=== PATIENT | female | born 1965 | race Caucasian/White ===

== ENCOUNTER 2022-12-03 07:32 | Emergency (ER) | payer OTHER, SELFPAY ==
[2022-12-03 07:36] VITALS: BP 158/96; PULSE 82; RESP 20; TEMP 36.8; O2SAT 99; BMI 27.4
--- NOTE | 2022-12-03 08:03 | ED_ITS ---
HPI - General Adult General Chief complaint: Eye Problems Stated complaint: RT eye swollen T-7 Time Seen by Provider: 12/03/22 07:45 Source: patient and family Mode of arrival: Family Vehicle History of Present Illness HPI narrative: 57-year-old female. No prior history of PE or case/Lasix/glaucoma/cataracts. Was seen in the walk-in clinic yesterday for redness around her right eye. Was diagnosed with cellulitis. Because of her allergies she was given a prescription for Bactrim eyedrops and also doxycycline. She comes in the emergency department today stating that she feels like her symptoms have worsened overnight. She has taken 1 dose of doxycycline yesterday and then 1 dose this morning. Related Data Home Medications Medication Instructions Recorded Confirmed levothyroxine 175 mcg tablet mcg PO 12/02/22 12/02/22 (Synthroid) oxycodone-acetaminophen 5 mg-325 1 tab PO Q6H PRN pain 12/02/22 12/02/22 mg tablet rosuvastatin 20 mg tablet 20 mg PO ONCE PM 12/02/22 12/02/22 sertraline 100 mg tablet 100 mg PO DAILY 12/02/22 12/02/22 Previous Rx's Medication Instructions Recorded doxycycline hyclate 100 mg capsule 100 mg PO BID 7 days #14 caps 12/02/22 polymyxin B sulfate 10,000 2 drp ophthalmic (eye) QID 12/02/22 unit-trimethoprim 1 mg/mL eye drops chalazion 10 days #10 mL Allergies Allergy/AdvReac Type Severity Reaction Status Date / Time levofloxacin Allergy Mild SOB Verified 12/03/22 07:47 cefuroxime Allergy Wheezing Verified 12/03/22 07:47 Review of Systems Eyes Eyes: Reports system reviewed and no additional complaints, except as documented Integumentary/Breasts Skin/Breast: Reports system reviewed and no additional complaints, except as documented Neurologic Neurologic: Reports system reviewed and no additional complaints, except as documented Patient History Social History Smoking Status: Former smoker Smoking Status: Former smoker tobacco type: cigarettes alcohol intake frequency: 0-2 drinks per day Substance Use Type: marijuana Exam Initial Vital Signs Initial Vital Signs: Vital Signs Temperature 98.3 F 12/03/22 07:36 Pulse Rate 82 12/03/22 07:36 Respiratory Rate 20 12/03/22 07:36 Blood Pressure 158/96 H 12/03/22 07:36 Pulse Oximetry 99 12/03/22 07:36 Oxygen Delivery Method Room Air 12/03/22 07:36 [facility] [place] Head: normal to inspection and normocephalic Ears: hearing grossly normal bilaterally, TM's normal bilaterally and EAC's normal Nose: external nose normal, No epistaxis and No nasal discharge Mouth: oral mucosae normal Eyes Other: Left eye is unremarkable. Right eye has redness surrounding the right eye and significant amount of swelling of the upper eyelid. Pupils are equal round reactive. No pain with extraocular movements. Neck Other: Right-sided anterior cervical lymphadenopathy Skin Other: Redness and swelling around the right upper eyelid Neuro General: patient alert, patient awake, patient oriented x3 and moves all extremities Extrem General: normal to inspection Course Vital Signs Vital signs: Vital Signs - 8 hr 12/03/22 07:36 Temperature 98.3 F Pulse Rate 82 Respiratory Rate 20 Blood Pressure 158/96 H Pulse Oximetry 99 Oxygen Delivery Method Room Air Medical Decision Making [facility] Narrative Medical decision making narrative: Patient has history and physical exam that is consistent with preseptal cellulitis. I have low suspicion for orbital cellulitis. Her extraocular muscles are intact. Her sclera an eye itself appear well. There was no drainage. I advised that she can stop the Bactrim drops is this is most likely not helping anything. She is on doxycycline which would be appropriate given her allergies. Had a discussion with her and her . She is really only had 1 dose of the antibiotics as the dose from this morning most likely has not had any effect. Rather than switching her to a new antibiotic I recommended that we continue on the current course of treatment for the next 24-48 hours. They were advised that if her symptoms worsen that she is going to need to return to the emergency department. I feel that we can hold on any radiologic studies for now as I feel that orbital cellulitis is very unlikely. They expressed understanding and agreement. Discharge Plan Departure Patient Disposition: Home Clinical Impression: Periorbital cellulitis Instructions: DI for Cellulitis -- Adult Activity Restrictions/Additional Instructions: I think that you can stop taking the eye drops as the infection that you have today is in the skin around the eye not in the eye itself. I recommend that you continue with the doxycycline and taking it as directed. You should see some improvement within the next 24-48 hours. If your symptoms are worsening please return to the emergency department for further evaluation. Prescriptions: No Action sertraline 100 mg tablet 100 mg PO DAILY oxycodone-acetaminophen 5-325 mg tablet 1 tab PO Q6H PRN (Reason: pain) rosuvastatin 20 mg tablet 20 mg PO ONCE PM levothyroxine [Synthroid] 175 mcg tablet PO polymyxin B sulf-trimethoprim 10,000 unit- 1 mg/mL drops 2 drp ophthalmic (eye) QID 10 Days Qty: 10 0RF doxycycline hyclate 100 mg capsule 100 mg PO BID 7 Days Qty: 14 0RF Referrals: Miscellaneous,Doctor, MD [Primary Care Provider] - Stand Alone Forms: Patient Portal/API
== END 2022-12-03 08:06 | disposition home or self-care (01) ==
PROVIDERS: Emergency Provider Emergency Medicine; PCP Family Medicine
DX: L03.213 Periorbital cellulitis (principal)
CPT/HCPCS: 99281

== ENCOUNTER 2022-12-03 19:07 | Emergency (ER) | payer OTHER, SELFPAY ==
[2022-12-03 19:22] VITALS: BP 173/100; PULSE 78; RESP 18; TEMP 37.1; O2SAT 99; BMI 27.4
--- NOTE | 2022-12-03 19:22 | ED_ITS ---
HPI - General Adult General Chief complaint: Skin/Abscess/Foreign Body Stated complaint: rt eye cellulitis getting worse Time Seen by Provider: 12/03/22 19:21 History of Present Illness HPI narrative: 57-year-old female former smoker with history of hypothyroid returns for the 2nd time today for evaluation of worsening pain, swelling and redness around her right eye. She was initially seen yesterday at the walk-in clinic and diagnosed with preseptal cellulitis versus blepharitis and started on antibacterial drops as well as oral doxycycline. She had some worsening of symptoms such as increased swelling and came to see us in the emergency department this morning. Her evaluation was reassuring and she was discharged with encouragement to return if her symptoms worsen. She is now had 3 doses of her doxycycline and has increasing swelling of her upper lid and adjacent to her right eye. She has no eye pain itself, denies any pain with extraocular motion, denies any eye drai nage or redness. She denies any vision change. She has no confusion or altered mental status, no difficulty swallowing. She denies chest pain, shortness of breath or cough Related Data Home Medications Medication Instructions Recorded Confirmed levothyroxine 175 mcg tablet mcg PO 12/02/22 12/02/22 (Synthroid) oxycodone-acetaminophen 5 mg-325 1 tab PO Q6H PRN pain 12/02/22 12/02/22 mg tablet rosuvastatin 20 mg tablet 20 mg PO ONCE PM 12/02/22 12/02/22 sertraline 100 mg tablet 100 mg PO DAILY 12/02/22 12/02/22 Previous Rx's Medication Instructions Recorded doxycycline hyclate 100 mg capsule 100 mg PO BID 7 days #14 caps 12/02/22 polymyxin B sulfate 10,000 2 drp ophthalmic (eye) QID 12/02/22 unit-trimethoprim 1 mg/mL eye drops chalazion 10 days #10 mL Allergies Allergy/AdvReac Type Severity Reaction Status Date / Time levofloxacin Allergy Mild SOB Verified 12/03/22 07:47 cefuroxime Allergy Wheezing Verified 12/03/22 07:47 Review of Systems Review of Systems Narrative: GENERAL: Denies chills, fatigue, malaise, fever, sweats. HEENT: See HPI RESPIRATORY: Denies dyspnea, cough, wheezing, hemoptysis, sputum. CARDIOVASCULAR: Denies chest pain, palpitations, orthopnea, edema, GASTROINTESTINAL: Denies nausea, vomiting, abdominal pain, diarrhea, constipation, melena. : Denies dysuria, frequency, incontinence, hematuria, urinary retention. MUSCULOSKELETAL: denies weakness, joint pain, or bony pain SKIN: See HPI NEUROLOGIC: Denies weakness, headache, numbness, change in speech, confusion, seizures, incoordination. PSYCHIATRIC: No concerning psychosocial issues. 12 point review of systems is negative except for those stated above Patient History Social History Smoking Status: Former smoker Smoking Status: Former smoker tobacco type: cigarettes alcohol intake frequency: 0-2 drinks per day Substance Use Type: marijuana Exam Narrative Exam Narrative: GENERAL: [57] year old patient appears stated age. Well-developed patient, in moderate distress, tearful, obviously uncomfortable HEAD: Atraumatic. Normocephalic. EYES: Right upper lid with moderate erythema and swelling, no fluctuance or drainage, this erythema and tenderness extends to the lateral aspect of her eye and overlying her zygoma. Pupils equal round and reactive. Extraocular motions intact. No scleral icterus. No injection or drainage. ENT: Nose without bleeding, purulent drainage. Throat without erythema, tonsillar hypertrophy or exudate. Airway patent. NECK: Trachea midline. Non tender CARDIOVASCULAR: Regular rate and rhythm without murmurs, gallops, or rubs. RESPIRATORY: Clear to auscultation. Breath sounds equal bilaterally. No wheezes, rales, or rhonchi. GASTROINTESTINAL: Abdomen soft, non-tender, nondistended. EXTREMITIES: No edema or joint tenderness. BACK: Nontender without deformity or crepitance. No flank tenderness. NEURO: AOx3. SKIN: No rash or erythema of visible areas Initial Vital Signs Initial Vital Signs: Vital Signs Temperature 98.7 F 12/03/22 19:22 Pulse Rate 78 12/03/22 19:22 Respiratory Rate 18 12/03/22 19:22 Blood Pressure 173/100 H 12/03/22 19:22 Pulse Oximetry 99 12/03/22 19:22 Oxygen Delivery Method Room Air 12/03/22 19:22 Course Orders Ordered: ED Orders 12/03/22 22:50 CT orbit BI w con Stat 12/03/22 23:05 Complete Blood Count AUTO DIFF Stat Comprehensive Metabolic Panel Stat Lactate (Lactic Acid) Stat 12/03/22 23:25 Blood Culture Stat Discontinued Medications Hydromorphone HCl (Hydromorphone 0.5 Mg Inj) 0.5 mg IV NOW ONE Stop: 12/04/22 00:23 Last Admin: 12/04/22 00:35 Dose: 0.5 mg Documented By: ERICA Sodium Chloride (Normal Saline 0.9%) 1,000 mls @ 1,000 mls/hr IV BOLUS ONE Stop: 12/03/22 23:49 Last Infusion: 12/04/22 00:11 Dose: 0 mls/hr Documented By: Admin: 12/03/22 23:24 Dose: 1,000 mls/hr Documented By: ERICA Ketorolac Tromethamine (Ketorolac 30 Mg/Ml Vial) 15 mg IV NOW ONE Stop: 12/03/22 22:51 Last Admin: 12/03/22 23:24 Dose: 15 mg Documented By: ERICA Vital Signs Vital signs: Vital Signs - 8 hr 12/03/22 21:57 12/03/22 21:57 12/03/22 22:00 Temperature Pulse Rate 73 Blood Pressure 144/92 H 138/87 Pulse Oximetry 96 Oxygen Delivery Method Room Air 12/03/22 22:00 12/03/22 22:30 12/03/22 22:30 Temperature Pulse Rate 74 71 Blood Pressure 137/83 Pulse Oximetry 97 96 Oxygen Delivery Method Room Air Room Air 12/03/22 23:00 12/03/22 23:30 12/04/22 00:00 Temperature Pulse Rate 71 70 69 Blood Pressure Pulse Oximetry 97 97 98 Oxygen Delivery Method Room Air Room Air 12/04/22 00:15 12/04/22 00:15 12/04/22 00:15 Temperature 97.6 F Pulse Rate 69 Blood Pressure 142/86 H Pulse Oximetry 98 Oxygen Delivery Method Room Air 12/04/22 00:30 12/04/22 00:30 12/04/22 01:00 Temperature Pulse Rate 64 Blood Pressure 136/80 140/89 Pulse Oximetry 97 Oxygen Delivery Method Room Air 12/04/22 01:00 Temperature Pulse Rate 66 Blood Pressure Pulse Oximetry 97 Oxygen Delivery Method Medical Decision Making Lab Data 12/03/22 23:05 12/03/22 23:05 Labs: Lab Results 12/03/22 12/03/22 12/03/22 Range/Units 23:05 23:05 23:05 WBC 6.0 (4.5-11.0) X10^3/uL RBC 4.03 (4.0-5.2) X10^6/uL Hgb 12.8 (12.0-16.0) g/dL Hct 36.9 (36-46) % MCV 91.6 (80-100) fL MCH 31.7 (26-34) PG MCHC 34.7 (30-36) % RDW 13.1 (11.6-14.8) % Plt Count 122 L (150-400) X10^3/uL Neut % (Auto) 66.2 (50-75) % Lymph % (Auto) 21.6 L (25-40) % Garvin % (Auto) 7.1 (3-14) % Eos % (Auto) 3.8 (2-4) % Baso % (Auto) 1.3 (0-2) % Neut # (Auto) 4000 (9896-3195) /uL Lymph # (Auto) 1300 (7864-6844) /uL Garvin # (Auto) 400 (0-900) /uL Eos # (Auto) 200 (0-450) /uL Baso # (Auto) 100 (0-100) /uL Sodium 136 L (137-145) mmol/L Potassium 3.7 (3.4-5.1) mmol/L Chloride 104 (98-107) mmol/L Carbon Dioxide 23 (22-32) mmol/L BUN 16 (7-17) mg/dL Creatinine 0.58 (0.52-1.04) mg/dL Estimated GFR > 60 (>60) mL/min BUN/Creatinine Ratio 27.6 H (6-22) Glucose 122 H (70-100) mg/dL Lactate 1.6 (0.7-2.1) mmol/L Calcium 9.2 (8.4-10.2) mg/dL Total Bilirubin 0.6 (0.2-1.3) mg/dL AST 24 (14-36) IU/L ALT 22 (<35) IU/L Alkaline Phosphatase 75 (38-126) U/L Total Protein 7.0 (6.3-8.2) g/dL Albumin 4.1 (3.5-5.0) g/dL Globulin 2.9 (1.7-4.1) g/dL Albumin/Globulin Ratio 1.4 (1.0-2.8) MDM Narrative Medical decision making narrative: CC: 57-year-old female with worsening pain, swelling and redness around her right eye Complicating co-morbidities: Age, former smoker, 3rd visit Data collected from: Patient Medical records reviewed: Prior notes reviewed in our EMR Differential considered, but not limited to: Preseptal cellulitis versus septal cellulitis versus abscess versus other Exam documented above, pertinent findings include: Pain, redness and swelling around right eye and mainly in the upper lid, no fluctuance or induration, no pain with extraocular motion, no drainage, no scleral Lab Test results independently reviewed as above. Pertinent findings: Injection or vision change Independently reviewed EKG as above Imaging studies independently reviewed: CT of the soft tissue of orbit notes cellulitis but no abscess, no retrobulbar infection. Treatments: Fluids, pain control Re-evaluations: Patient feeling much better Discussion: Patient with increasing pain and redness of her right upper lid. She is been seen in diagnosed with cellulitis and has taken 3 doses of doxycycline. Her vision is intact, she is no pain with extraocular motions and is otherwise well. We had a lengthy discussion between myself, patient and about how to proceed. We discussed that after only 3 doses of doxycycline there is not sufficient amount of time to determine that this is an antibiotic failure. We discussed the pros and cons of continuing on doxycycline for a few more days or switching and agreed that we would stick with doxycycline as it is clear that she tolerates it and she likely has not been on it long enough to in change. Imaging is reassuring and there is no abscess or evidence of deep infection. She is given extensive return precautions and questions have been answered to her apparent satisfaction Disposition: see below, along with detailed discharge instructions that have been reviewed with patient as well as indications for ED re-evaluation and additional outpatient follow up Discharge Plan Departure Patient Disposition: Home Clinical Impression: Periorbital cellulitis Instructions: DI for Cellulitis -- Adult Activity Restrictions/Additional Instructions: *You have been diagnosed with [periorbital cellulitis. As we discussed your history and physical exam are reassuring as are labs and the CT scan.] *What to do: *Please continue to take your regular medications as directed. *Please follow up with your primary care provider in 2-3 days, call for an appointment. Let them know you were seen in the Emergency Department and that we ask that you be seen in follow up. We will electronically transmit a record of today's note if your PCP is in our system *If you do not have a primary care provider please contact the [facility] Resource line at [phone]. They will ask some questions about your medical history and help get you set up with a doctor in the community. *Return to Emergency Department if you should have any new, worsening or concerning symptoms, such as [fever greater than 101 F, shaking chills, worsening pain, persistent vomiting or other bothersome symptoms] Prescriptions: No Action sertraline 100 mg tablet 100 mg PO DAILY oxycodone-acetaminophen 5-325 mg tablet 1 tab PO Q6H PRN (Reason: pain) rosuvastatin 20 mg tablet 20 mg PO ONCE PM levothyroxine [Synthroid] 175 mcg tablet PO polymyxin B sulf-trimethoprim 10,000 unit- 1 mg/mL drops 2 drp ophthalmic (eye) QID 10 Days Qty: 10 0RF doxycycline hyclate 100 mg capsule 100 mg PO BID 7 Days Qty: 14 0RF Referrals: Obdulia Diallo MD [Primary Care Provider] - Stand Alone Forms: Patient Portal/API
[2022-12-03 21:57] VITALS: BP 144/92; PULSE 73; O2SAT 96
[2022-12-03 22:00] VITALS: BP 138/87; PULSE 74; O2SAT 97
[2022-12-03 22:30] VITALS: BP 137/83; PULSE 71; O2SAT 96
--- NOTE | 2022-12-03 22:50 | DI.CT.S_ITS ---
PROCEDURE: CT ORBIT BI W CON INDICATIONS: facial pain, swelling, redness, worsening TECHNIQUE: After the administration of intravenous contrast, 2.5 mm axial images acquired through the orbits, with coronal and sagittal reformats. For radiation dose reduction, the following was used: automated exposure control, adjustment of mA and/or kV according to patient size. COMPARISON: None. FINDINGS: Image quality: Excellent. Orbits: There is right periorbital soft tissue swelling and enhancement tracking along the right globe anteriorly. Globes are intact and symmetric in size. The optic nerves are normal in size and enhancement. No retrobulbar masses, fluid collections, or fat stranding. The extra-ocular muscles are normal and symmetrical in appearance. Lacrimal glands are normal. Optic chiasm is normal. Periorbital soft tissues are normal. Intracranial: The pituitary gland is normal, without sellar or suprasellar masses. Visualized cerebral hemispheres, brainstem, and spinal cord appear normal. Bones and sinuses: Visualized calvarium and facial bones appear intact. Visualized sinuses and mastoids are clear. IMPRESSION: 1. Right periorbital soft tissue swelling and enhancement likely represent cellulitis. No definite evidence of retrobulbar extension. Dictated by: Oliver Walton M.D. on 12/04/2022 at 0:57 Approved by: Oliver Walton M.D. on 12/04/2022 at 0:59
[2022-12-03 23:00] VITALS: PULSE 71; O2SAT 97
[2022-12-03 23:16] LABS: Add Manual Diff / Slide Review NO; Basophils Absolute Auto 100 /uL (0-100); Basophils Percent Auto 1.3 % (0-2); Eosinophils Absolute Auto 200 /uL (0-450); Eosinophils Percent Auto 3.8 % (2-4); Hematocrit 36.9 % (36-46); Hemoglobin 12.8 g/dL (12.0-16.0); Lymphocytes Absolute Auto 1300 /uL (1100-4500); Lymphocytes Percent Auto 21.6 % (25-40); Mean Corpuscular HGB Conc 34.7 % (30-36); Mean Corpuscular Hemoglobin 31.7 PG (26-34); Mean Corpuscular Volume 91.6 fL (80-100); Monocytes Absolute Auto 400 /uL (0-900); Monocytes Percent Auto 7.1 % (3-14); Neutrophils Absolute Auto 4000 /uL (1500-7000); Neutrophils Percent Auto 66.2 % (50-75); Platelet Count 122 X10^3/uL (150-400); Red Blood Cell Count 4.03 X10^6/uL (4.0-5.2); Red Cell Distribution Width 13.1 % (11.6-14.8)
[2022-12-03] MEDS: KETOROLAC 30 MG/ML VIAL 15 MG IV (23:24)
[2022-12-03] MEDS: SODIUM CHLORIDE 0.9% 1,000 ML 1000 ML IV (23:24)
[2022-12-03 23:25] LABS: Lactate (Lactic Acid) 1.6 mmol/L (0.7-2.1)
[2022-12-03 23:27] LABS: Alanine Aminotransferase 22 IU/L (<35); Albumin 4.1 g/dL (3.5-5.0); Albumin Globulin Ratio 1.4 (1.0-2.8); Alkaline Phosphatase 75 U/L (38-126); Aspartate Aminotransferase 24 IU/L (14-36); BUN Creatinine Ratio 27.6 (6-22); Bilirubin Total 0.6 mg/dL (0.2-1.3); Blood Urea Nitrogen 16 mg/dL (7-17); Calcium 9.2 mg/dL (8.4-10.2); Carbon Dioxide 23 mmol/L (22-32); Chloride 104 mmol/L (98-107); Estimated Glomerular Filt Rate > 60 mL/min (>60); Globulin 2.9 g/dL (1.7-4.1); Glucose 122 mg/dL (70-100); HEMOLYSIS 26 (0-50); Potassium 3.7 mmol/L (3.4-5.1); Sodium 136 mmol/L (137-145)
[2022-12-03 23:30] VITALS: PULSE 70; O2SAT 97
[2022-12-04] VITALS: PULSE 69; O2SAT 98
[2022-12-04 00:15] VITALS: BP 142/86; PULSE 69; TEMP 36.4; O2SAT 98
[2022-12-04 00:30] VITALS: BP 136/80; PULSE 64; O2SAT 97
[2022-12-04] MEDS: HYDROMORPHONE 0.5 MG INJ IV (00:35)
[2022-12-04 01:00] VITALS: BP 140/89; PULSE 66; O2SAT 97
== END 2022-12-04 01:27 | disposition home or self-care (01) ==
PROVIDERS: Emergency Provider Emergency Medicine; PCP Family Medicine
DX: L03.213 Periorbital cellulitis (principal)
CPT/HCPCS: 36415; 70481; 80053; 83605; 85025; 87040; 96361; 96374; 96375; 99281; 99284; J1170; J1885; Q9967

== ENCOUNTER 2024-06-10 12:55 | Emergency (ER) | payer OTHER, SELFPAY ==
[2024-06-10] VITALS (11 sets, daily range): BP systolic 98–130; BP diastolic 56–70; PULSE 70–90; RESP 16–24; TEMP 36.9; O2SAT 94–100; BMI 29.0
--- NOTE | 2024-06-10 13:19 | EKG_ITS ---
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
[2024-06-10 13:42] LABS: Add Manual Diff / Slide Review NO; Basophils Absolute Auto 100 /uL (0-100); Basophils Percent Auto 1.3 % (0-2); Eosinophils Absolute Auto 300 /uL (0-450); Eosinophils Percent Auto 5.9 % (2-4); Hematocrit 37.1 % (36-46); Hemoglobin 12.9 g/dL (12.0-16.0); Lymphocytes Absolute Auto 1400 /uL (1100-4500); Lymphocytes Percent Auto 27.3 % (25-40); Mean Corpuscular HGB Conc 34.8 % (30-36); Mean Corpuscular Hemoglobin 31.9 PG (26-34); Mean Corpuscular Volume 91.6 fL (80-100); Monocytes Absolute Auto 400 /uL (0-900); Monocytes Percent Auto 7.2 % (3-14); Neutrophils Absolute Auto 3100 /uL (1500-7000); Neutrophils Percent Auto 58.3 % (50-75); Platelet Count 148 X10^3/uL (150-400); Red Blood Cell Count 4.05 X10^6/uL (4.0-5.2); Red Cell Distribution Width 12.8 % (11.6-14.8); White Blood Cell Count 5.3 X10^3/uL (4.5-11.0)
[2024-06-10 13:44] LABS: Alanine Aminotransferase 39 IU/L (<35); Albumin 4.5 g/dL (3.5-5.0); Albumin Globulin Ratio 1.9 (1.0-2.8); Alkaline Phosphatase 77 U/L (38-126); Aspartate Aminotransferase 38 IU/L (14-36); BUN Creatinine Ratio 21.7 (6-22); Bilirubin Total 0.7 mg/dL (0.2-1.3); Blood Urea Nitrogen 15 mg/dL (7-17); Calcium 9.8 mg/dL (8.4-10.2); Carbon Dioxide 24 mmol/L (22-32); Chloride 105 mmol/L (98-107); Creatine Kinase 33 U/L (30-135); Estimated Glomerular Filt Rate > 60 mL/min (>60); Globulin 2.4 g/dL (1.7-4.1); Glucose 111 mg/dL (70-100); HEMOLYSIS < 15 (0-50); Lipase 59 U/L (23-300); Potassium 4.2 mmol/L (3.4-5.1); Sodium 138 mmol/L (137-145); Total Protein 6.9 g/dL (6.3-8.2)
[2024-06-10 13:56] LABS: Troponin I < 0.012 ng/mL (0.01-0.034)
[2024-06-10] MEDS: ONDANSETRON 4 MG/2 ML INJ IV (14:12)
--- NOTE | 2024-06-10 14:17 | PC.NURSE ---
Pt reports that pain is under control. Feeling nauseated, medicated for nausea.
--- NOTE | 2024-06-10 15:12 | ED_ITS ---
HPI - General Adult General Chief complaint: Abdominal Pain Stated complaint: upper abd pain Time Seen by Provider: 06/10/24 13:30 Source: patient Mode of arrival: Ambulatory History of Present Illness HPI narrative: 58-year-old female with history of prior but no other abdominopelvic surgeries, no known gallbladder problems, had epigastric spasm like pain 11:00 p.m. lasting about an hour and a half, seems improved now, some associated belching, with some radiation toward the back. No trauma injury or new activities. No cough or shortness of breath. Some associated nausea without emesis. No diarrhea. No black or red stools. No black or red emesis. No painful urination or frequency of urination. No fevers or chills. She feels improved now. Related Data Home Medications Medication Instructions Recorded Confirmed levothyroxine 175 mcg tablet mcg PO 12/02/22 12/02/22 (Synthroid) oxycodone-acetaminophen 5 mg-325 1 tab PO Q6H PRN pain 12/02/22 12/02/22 mg tablet rosuvastatin 20 mg tablet 20 mg PO ONCE PM 12/02/22 12/02/22 sertraline 100 mg tablet 100 mg PO DAILY 12/02/22 12/02/22 Previous Rx's Medication Instructions Recorded omeprazole 20 mg capsule,delayed 20 mg PO DAILY upper abdominal 06/10/24 release pain 30 days #30 caps Allergies Allergy/AdvReac Type Severity Reaction Status Date / Time levofloxacin Allergy Mild SOB Verified 06/10/24 13:08 cefuroxime Allergy Wheezing Verified 06/10/24 13:08 Patient History Social History Smoking Status: Current every day smoker Smoking Status: Current every day smoker tobacco type: cigarettes alcohol intake frequency: 0-2 drinks per day Exam Narrative Exam Narrative: GENERAL: Well-developed patient, in mild distress. HEAD: Atraumatic. Normocephalic. EYES: Pupils equal round and reactive. Extraocular motions intact. No scleral icterus. No injection or drainage. ENT: Nose without bleeding, purulent drainage. Throat without erythema, tonsillar hypertrophy or exudate. Airway patent. NECK: Trachea midline. Non tender CARDIOVASCULAR: Regular rate and rhythm without murmurs, gallops, or rubs. RESPIRATORY: Clear to auscultation. Breath sounds equal bilaterally. No wheezes, rales, or rhonchi. GASTROINTESTINAL: Abdomen soft, non-tender, nondistended. EXTREMITIES: No edema or joint tenderness. BACK: Nontender without deformity or crepitance. No flank tenderness. NEURO: AOx3. Motor functions grossly nonfocal SKIN: No rash or erythema of visible areas Initial Vital Signs Initial Vital Signs: Vital Signs Temperature 98.4 F 06/10/24 13:08 Pulse Rate 90 06/10/24 13:08 Respiratory Rate 16 06/10/24 13:08 Blood Pressure 112/70 06/10/24 13:08 Pulse Oximetry 100 06/10/24 13:08 Oxygen Delivery Method Room Air 06/10/24 13:08 Course Orders Ordered: Discontinued Medications Aspirin (Aspirin 81 Mg Chew Tab) 324 mg PO NOW ONE Stop: 06/10/24 13:31 Last Admin: 06/10/24 14:29 Dose: Not Given Documented By: Famotidine (Famotidine 20 Mg/2 Ml Vial) 20 mg IV NOW VIMAL Ondansetron HCl (Ondansetron 4 Mg/2 Ml Inj) 4 mg IV NOW PRN PRN Reason: Nausea And Vomiting Last Admin: 06/10/24 14:12 Dose: 4 mg Documented By: Ondansetron HCl (Ondansetron 4 Mg Odt) 4 mg PO NOW PRN PRN Reason: Nausea And Vomiting Vital Signs Vital signs: Vital Signs - 8 hr 06/10/24 13:08 06/10/24 13:29 06/10/24 13:29 Temperature 98.4 F Pulse Rate 90 78 Respiratory Rate 16 16 Blood Pressure 112/70 130/68 Pulse Oximetry 100 97 Oxygen Delivery Method Room Air 06/10/24 13:30 06/10/24 13:30 06/10/24 14:00 Temperature Pulse Rate 75 Respiratory Rate 18 Blood Pressure 118/65 106/56 L Pulse Oximetry 96 Oxygen Delivery Method Room Air 06/10/24 14:00 06/10/24 14:30 06/10/24 14:30 Temperature Pulse Rate 71 72 Respiratory Rate 16 20 Blood Pressure 101/56 L Pulse Oximetry 95 95 Oxygen Delivery Method 06/10/24 15:00 06/10/24 15:00 06/10/24 15:30 Temperature Pulse Rate 72 77 Respiratory Rate 21 19 Blood Pressure 107/62 Pulse Oximetry 96 94 Oxygen Delivery Method Room Air 06/10/24 15:30 06/10/24 16:00 06/10/24 16:00 Temperature Pulse Rate 72 Respiratory Rate 19 Blood Pressure 105/56 L 98/57 L Pulse Oximetry 96 Oxygen Delivery Method 06/10/24 16:30 06/10/24 16:30 06/10/24 17:00 Temperature Pulse Rate 72 72 Respiratory Rate 22 21 Blood Pressure 98/58 L Pulse Oximetry 94 94 Oxygen Delivery Method Room Air 06/10/24 17:00 06/10/24 17:30 06/10/24 17:30 Temperature Pulse Rate 70 Respiratory Rate 24 Blood Pressure 109/56 L 104/57 L Pulse Oximetry 95 Oxygen Delivery Method Medical Decision Making Lab Data Lab results reviewed: Yes I reviewed the patient's lab results. Lab results narrative: White blood cell count 5300, hemoglobin 12.9, platelets 148,000. Glucose 111. BUN 15 with creatinine 0.69. Sodium 139 with potassium 4.2, serum CO2 24, serum chloride 115. Liver functions normal. Lipase normal. Troponin negative. 06/10/24 13:20 06/10/24 13:20 Labs: Lab Results 06/10/24 06/10/24 Range/Units 13:20 16:18 WBC 5.3 (4.5-11.0) X10^3/uL RBC 4.05 (4.0-5.2) X10^6/uL Hgb 12.9 (12.0-16.0) g/dL Hct 37.1 (36-46) % MCV 91.6 (80-100) fL MCH 31.9 (26-34) PG MCHC 34.8 (30-36) % RDW 12.8 (11.6-14.8) % Plt Count 148 L (150-400) X10^3/uL Neut % (Auto) 58.3 (50-75) % Lymph % (Auto) 27.3 (25-40) % Braxton % (Auto) 7.2 (3-14) % Eos % (Auto) 5.9 H (2-4) % Baso % (Auto) 1.3 (0-2) % Neut # (Auto) 3100 (1401-9687) /uL Lymph # (Auto) 1400 (4397-3035) /uL Braxton # (Auto) 400 (0-900) /uL Eos # (Auto) 300 (0-450) /uL Baso # (Auto) 100 (0-100) /uL Sodium 138 (137-145) mmol/L Potassium 4.2 (3.4-5.1) mmol/L Chloride 105 (98-107) mmol/L Carbon Dioxide 24 (22-32) mmol/L BUN 15 (7-17) mg/dL Creatinine 0.69 (0.52-1.04) mg/dL Estimated GFR > 60 (>60) mL/min BUN/Creatinine Ratio 21.7 (6-22) Glucose 111 H (70-100) mg/dL Calcium 9.8 (8.4-10.2) mg/dL Total Bilirubin 0.7 (0.2-1.3) mg/dL AST 38 H (14-36) IU/L ALT 39 H (<35) IU/L Alkaline Phosphatase 77 (38-126) U/L Total Creatine Kinase 33 (30-135) U/L Troponin I < 0.012 < 0.012 (0.01-0.034) ng/mL Total Protein 6.9 (6.3-8.2) g/dL Albumin 4.5 (3.5-5.0) g/dL Globulin 2.4 (1.7-4.1) g/dL Albumin/Globulin Ratio 1.9 (1.0-2.8) Lipase 59 (23-300) U/L Imaging Data CT scan - abdomen/pelvis: Radiologist's Impression: Close Abdomen Ultrasound (Signed) Silviano Nunez - 06/10/24 [place] [id number] Ultrasound Report Signed Patient: Yuly Pandey MR#: [id number] : 1965 Acct:[id number] Age/Sex: 58 / F Date of Service: 06/10/24 Loc: ED Accession Number: [id number] Procedure: US abdomen limited Ordering Provider: Jeremy Hyman MD PROCEDURE: US ABDOMEN LIMITED INDICATIONS: ruq abdominal pain. TECHNIQUE: Real-time scanning was performed of the abdominal and retroperitoneal organs, with image documentation. COMPARISON: None. FINDINGS: Evaluation is limited due to body habitus and insufficient sonographic penetration. Liver: Liver is normal in size and homogeneous in echotexture. The parenchyma is hyperechoic. There is a 2.2 x 1.5 x 2.0 cm area of focal fatty sparing adjacent to the gallbladder fossa. Gallbladder: No gallstones. No wall thickening. No pericholecystic edema. Negative sonographic Galo's sign. Biliary ducts: Intrahepatic bile ducts are non-dilated. Extrahepatic bile duct caliber measures 6 mm. Normal is 6-7 mm or less in diameter, or 10 mm or less post-cholecystectomy. Pancreas: Visualized portions of the pancreas are sonographically normal. Miscellaneous: No free abdominal fluid. IMPRESSION: Hepatic steatosis versus underlying hepatocellular disease. Dictated by: Silviano Nunez M.D. on 06/10/2024 at 15:58 Approved by: Silviano Nunez M.D. on 06/10/2024 at 16:00 ECG Data Attestation: I personally reviewed and interpreted this ECG as follows: Interpretation: Normal sinus rhythm with rate of 76, no obvious ST segment elevation or depression changes. Some movement artifact baseline. NH 130, QRS 82, QTC 447. MDM Narrative Medical decision making narrative: 58-year-old female with epigastric pain radiating to the back lasting a few hours, symptoms seemed to be resolved. EKG without obvious ischemic changes, troponin x2 sets negative. Liver functions slight elevation, history of fatty liver noted. We discussed abdominal imaging, upper symptoms we will hold CT for now, she would be interested in ultrasound gallbladder imaging. Symptoms resolve. Screening labs unremarkable. Slight transaminitis with reported fatty liver known, other liver functions normal. Ultrasound gallbladder showed no acute changes. Fatty liver changes noted. See radiology report. Copy of report provided to patient. Consider trial of omeprazole or other antacid, they have this at home, has been has supply from [facility], she will take 2 tablets daily for a week and then 1 tablet daily for this next month. Follow up with PCP advised, if symptoms persist consider endoscopy and/or other abdominal workup. They seemed satisfied with this approach. Discharged home with family. Return precautions discussed. Discharge Plan Departure Patient Disposition: Home Clinical Impression: Acute epigastric pain Activity Restrictions/Additional Instructions: Acute upper middle abdominal discomfort of unclear cause. EKG and blood testing not suspicious for heart attack at this time. Symptoms seemed to be significantly improved and essentially resolved. IV Pepcid antacid given. Ultrasound of the gallbladder right upper quadrant region nondiagnostic. Consider trial of antacid for now in case there is esophageal reflux and/or gastric ulcer and/or gastritis and/or duodenal ulcer that might be amenable to treatment with antacid therapy that could account for these symptoms. You might require upper endoscopy evaluation. Prescription for omeprazole sent to your pharmacy. Take medications as directed. Continue your chronic medications. Follow up with your regular doctor to reassess symptoms next week. Return to this/nearest emergency department for any change worsening symptoms or any concerns prior. Prescriptions: New omeprazole 20 mg capsule,delayed release(DR/EC) 20 mg PO DAILY 30 Days Qty: 30 0RF No Action sertraline 100 mg tablet 100 mg PO DAILY oxycodone-acetaminophen 5-325 mg tablet 1 tab PO Q6H PRN (Reason: pain) rosuvastatin 20 mg tablet 20 mg PO ONCE PM levothyroxine [Synthroid] 175 mcg tablet PO Referrals: Obdulia Diallo MD [Primary Care Provider] - Stand Alone Forms: Patient Portal/API/Survey
--- NOTE | 2024-06-10 16:09 | DI.US.S_ITS ---
PROCEDURE: US ABDOMEN LIMITED INDICATIONS: ruq abdominal pain. TECHNIQUE: Real-time scanning was performed of the abdominal and retroperitoneal organs, with image documentation. COMPARISON: None. FINDINGS: Evaluation is limited due to body habitus and insufficient sonographic penetration. Liver: Liver is normal in size and homogeneous in echotexture. The parenchyma is hyperechoic. There is a 2.2 x 1.5 x 2.0 cm area of focal fatty sparing adjacent to the gallbladder fossa. Gallbladder: No gallstones. No wall thickening. No pericholecystic edema. Negative sonographic Galo's sign. Biliary ducts: Intrahepatic bile ducts are non-dilated. Extrahepatic bile duct caliber measures 6 mm. Normal is 6-7 mm or less in diameter, or 10 mm or less post-cholecystectomy. Pancreas: Visualized portions of the pancreas are sonographically normal. Miscellaneous: No free abdominal fluid. IMPRESSION: Hepatic steatosis versus underlying hepatocellular disease. Dictated by: Silviano Nunez M.D. on 06/10/2024 at 15:58 Approved by: Silviano Nunez M.D. on 06/10/2024 at 16:00
[2024-06-10 16:46] LABS: Troponin I < 0.012 ng/mL (0.01-0.034)
--- NOTE | 2024-06-10 17:00 | PC.NURSE ---
Pt states that her pain is gone now and she wants to go home. Dr Hyman notified.
== END 2024-06-10 17:52 | disposition home or self-care (01) ==
PROVIDERS: Emergency Provider Emergency Medicine; PCP Family Medicine
DX: R10.13 Epigastric pain (principal); R74.01 Elevation of levels of liver transaminase levels
CPT/HCPCS: 36415; 76705; 80053; 82550; 83690; 84484; 85025; 93005; 93010; 96374; 99284; J2405

== ENCOUNTER → 2024-07-10 09:58 | Outpatient (CLI) | payer OTHER, SELFPAY ==
--- NOTE | 2024-07-10 10:00 | DI.RAD.S_ITS ---
PROCEDURE: XR KNEE LT 1TO2V INDICATIONS: SPRAIN L KNEE TECHNIQUE: Lateral and sunrise view of the left knee were acquired. COMPARISON: None. FINDINGS: Bones: There is no acute fracture or other osseous abnormalities. Joints: Mild patellofemoral and tibial femoral degenerative change appreciated. Moderate posttraumatic effusion noted Soft tissues: Normal IMPRESSION: Moderate posttraumatic effusion. Mild degeneration . Dictated by: El Redman M.D. on 07/10/2024 at 12:04 Approved by: El Redman M.D. on 07/10/2024 at 12:05
--- NOTE | 2024-07-10 10:00 | DI.RAD.S_ITS ---
PROCEDURE: XR KNEE STANDING BI INDICATIONS: SPRAIN L KNEE TECHNIQUE: AP view of both knee(s) COMPARISON: None. FINDINGS: Bones: There are no osseous abnormalities. Joints: Minimal bilateral medial tibial femoral degeneration appreciated. Soft tissues: Normal IMPRESSION: Minimal bilateral medial tibial femoral degeneration Dictated by: El Redman M.D. on 07/10/2024 at 12:03 Approved by: El Redman M.D. on 07/10/2024 at 12:04
== END ==
PROVIDERS: PCP Family Medicine; Referring Provider Family Medicine; Visit Provider Family Medicine
DX: S83.92XA Sprain of unspecified site of left knee, initial encounter (principal); M17.12 Unilateral primary osteoarthritis, left knee; M25.462 Effusion, left knee; X58.XXXA Exposure to other specified factors, initial encounter
CPT/HCPCS: 73560; 73565